=== PATIENT | female | born 1990 | race Caucasian/White ===

== ENCOUNTER → 2016-11-04 | Outpatient (CLI) | payer BC ==
--- NOTE | 2016-11-04 10:51 | DI ---
INDICATION: ITS.REASON: Z82.49 Family history of ischemic heart disease and other disease PROCEDURE: CHEST 2-VIEWS UPRIGHT (PA \T\ LAT) Encounter: Initial COMPARISON: None FINDINGS: There is an 8 mm density projecting over the left anterior third rib. The lungs are otherwise clear. There is no pleural effusion or pneumothorax. The heart size, mediastinal contours and pulmonary vascularity are within normal limits. There is no significant skeletal abnormality. IMPRESSION: 1. No acute cardiopulmonary disease. 2. 8 mm density projecting over the left third anterior rib. This is almost certainly a benign finding and could be due to a calcified granuloma. Comparison with any available prior radiographs would be helpful to determine the chronicity of this. However, given the concern for hereditary hemorrhagic telangiectasia a small pulmonary AVM cannot be entirely excluded and further evaluation with a CT angiogram of the chest could be performed for further evaluation on a nonemergent basis. .
== END ==
LOC: IMA 10:14
PROVIDERS: ATTEND Obstetrics & Gynecology
DX: Z82.49 Family history of ischemic heart disease and other diseases of the circulatory system (principal); R91.8 Other nonspecific abnormal finding of lung field